=== PATIENT | female | born 1955 | race Caucasian/White ===

== ENCOUNTER 2020-06-22 14:22 | Emergency (ER) | payer BC ==
--- NOTE | 2020-06-22 17:03 | RAD REPORT ---
EXAM DESCRIPTION: RAD - Knee Right 3 View - 06/22/2020 4:13 pm CLINICAL HISTORY: Right knee pain status post injury FINDINGS: No fracture or dislocation is seen. If patient continues have symptoms to suggest an occul t fracture, ligamentous or meniscal injury then MRI would be
--- NOTE | 2020-06-22 17:47 | EDPHYS ---
Physician Documentation [facility] Name: Leslie Mitchell Age: 65 yrs Sex: Female : 1955 Arrival Date: 06/22/2020 Time: 14:27 Bed 20 Private MD: SOFIA Physician Nick Hayes HPI: 06/22 17:35 This 65 yrs old Female presents to ER via Ambulatory with complaints of Knee emily Pain. 17:35 The patient presents with decreased range of motion. The complaints affect the right emily knee. Context: The problem was sustained at home. Onset: The symptoms/episode began/occurred just prior to arrival. Modifying factors: The symptoms are alleviated by elevating leg, remaining still, the symptoms are aggravated by nothing. Associated signs and symptoms: The patient has no apparent associated signs or symptoms. Severity of symptoms: At their worst the symptoms were moderate, in the emergency department the symptoms are unchanged. The patient has not experienced similar symptoms in the past. Historical: - Allergies: 14:36 No Known Allergies; aa5 - Home Meds: 14:36 sertraline 200 mg oral tab 1 tab once daily [Active]; lisinopril 10 mg Oral tab 1 tab aa5 once daily [Active]; atorvastatin 80 mg oral tab 1 tab once daily [Active]; Januvia 100 mg oral tab 1 tab once daily [Active]; metformin 1,000 mg Oral tab 1 tab 2 times per day [Active]; glyburide 5 mg Oral tab 1 tab 2 times per day [Active]; Lasix 20 mg Oral tab 1 tab once daily [Active]; montelukast 10 mg oral tab 1 tab once daily [Active]; pioglitazone 15 mg oral tab 1 tab once daily [Active]; Vitamin C 1,000 mg Oral tab daily [Active]; aspirin 81 mg Oral chew 1 tab once daily [Active]; Centrum Silver oral oral daily [Active]; cranberry oral oral [Active]; - PMHx: 14:36 Hyperlipidemia; Hypertension; Diabetes - NIDDM; Asthma; aa5 - PSHx: 14:36 Hysterectomy; ; arm surgery; aa5 - Immunization history:: Client reports receiving the 2nd dose of the Covid vaccine, Flu vaccine is up to date. - Social history:: Smoking status: Patient/guardian denies using tobacco. - Family history:: not pertinent. ROS: 17:35 Constitutional: Negative for fever, chills, and weight loss, Eyes: Negative for injury, emily pain, redness, and discharge, ENT: Negative for injury, pain, and discharge, Neck: Negative for injury, pain, and swelling, Cardiovascular: Negative for chest pain, palpitations, and edema, Respiratory: Negative for shortness of breath, cough, wheezing, and pleuritic chest pain, Abdomen/GI: Negative for abdominal pain, nausea, vomiting, diarrhea, and constipation, Back: Negative for injury and pain, : Negative for injury, bleeding, discharge, and swelling, Skin: Negative for injury, rash, and discoloration, Neuro: Negative for headache, weakness, numbness, tingling, and seizure, Psych: Negative for depression, anxiety, suicide ideation, homicidal ideation, and hallucinations, Allergy/Immunology: Negative for hives, rash, and allergies, Endocrine: Negative for neck swelling, polydipsia, polyuria, polyphagia, and marked weight changes, Hematologic/Lymphatic: Negative for swollen nodes, abnormal bleeding, and unusual bruising. 17:35 MS/extremity: Positive for injury or acute deformity, decreased range of motion, pain, of the right knee. Exam: 17:35 Constitutional: This is a well developed, well nourished patient who is awake, alert, emily and in no acute distress. Head/Face: Normocephalic, atraumatic. Eyes: Pupils equal round and reactive to light, extra-ocular motions intact. Lids and lashes normal. Conjunctiva and sclera are non-icteric and not injected. Cornea within normal limits. Periorbital areas with no swelling, redness, or edema. ENT: Nares patent. No nasal discharge, no septal abnormalities noted. Tympanic membranes are normal and external auditory canals are clear. Oropharynx with no redness, swelling, or masses, exudates, or evidence of obstruction, uvula midline. Mucous membranes moist. Neck: Trachea midline, no thyromegaly or masses palpated, and no cervical lymphadenopathy. Supple, full range of motion without nuchal rigidity, or vertebral point tenderness. No Meningismus. Chest/axilla: Normal chest wall appearance and motion. Nontender with no deformity. No lesions are appreciated. Cardiovascular: Regular rate and rhythm with a normal S1 and S2. No gallops, murmurs, or rubs. Normal PMI, no JVD. No pulse deficits. Respiratory: Lungs have equal breath sounds bilaterally, clear to auscultation and percussion. No rales, rhonchi or wheezes noted. No increased work of breathing, no retractions or nasal flaring. Abdomen/GI: Soft, non-tender, with normal bowel sounds. No distension or tympany. No guarding or rebound. No evidence of tenderness throughout. Back: No spinal tenderness. No costovertebral tenderness. Full range of motion. Female : Normal external genitalia. Skin: Warm, dry with normal turgor. Normal color with no rashes, no lesions, and no evidence of cellulitis. Neuro: Awake and alert, GCS 15, oriented to person, place, time, and situation. Cranial nerves II-XII grossly intact. Motor strength 5/5 in all extremities. Sensory grossly intact. Cerebellar exam normal. Normal gait. Psych: Awake, alert, with orientation to person, place and time. Behavior, mood, and affect are within normal limits. 17:35 Musculoskeletal/extremity: Extremities: grossly normal except: decreased ROM, pain, ROM: full active range of motion, full passive range of motion, limited active range of motion due to pain, limited passive range of motion due to pain, in the right knee. 17:35 Musculoskeletal/extremity: Circulation is intact in all extremities. Sensation intact. Compartment Syndrome exam of affected extremity: is normal. DVT Exam: no swelling, no appreciated bluish discoloration, no erythema, no increased warmth, pain, tenderness. 17:35 Skin: Exam negative for 17:35 Neuro: Exam negative for Orientation: is normal, appropriate for stated age, no acute changes. Vital Signs: 14:31 BP 125 / 67; Pulse 94; Resp 18; Temp 97.9; Pulse Ox 99% on R/A; Weight 87.09 kg (R); aa5 Height 5 ft. 3 in. (160.02 cm) (R); Pain 7/10; 14:31 Body Mass Index 34.01 (87.09 kg, 160.02 cm) aa5 MDM: 16:24 Patient medically screened. emily 17:49 Differential diagnosis: dislocation, closed fracture, contusion, abrasion, tendonitis. emily Data reviewed: vital signs, nurses notes, radiologic studies, plain films. Data interpreted: hydraulic technician: not applicable for this patient encounter. rate is 94 beats/min, rhythm is regular, Pulse oximetry: on room air is 99 %. Test interpretation: by ED physician or midlevel provider: plain radiologic studies. Counseling: I had a detailed discussion with the patient and/or guardian regarding: the historical points, exam findings, and any diagnostic results supporting the discharge/admit diagnosis, lab results, radiology results, the need for outpatient follow up, for definitive care, a orthopedic surgeon. 06/22 14:41 Order name: Knee Right 3 View XRAY aa5 06/22 14:46 Order name: Ice pack; Complete Time: 17:08 [facility] 06/22 17:33 Order name: Knee Immobilizer; Complete Time: 18:06 emily 06/22 17:33 Order name: Crutch Training; Complete Time: 18:06 [facility] Administered Medications: 18:00 Drug: Motrin (ibuprofen) 600 mg Route: PO; zb 18:06 Follow up: Response: Medication administered at discharge. zb Disposition: 06/22/20 17:46 Discharged to Home. Impression: Pain in right knee, Other internal derangements of knee - further evaluation needed, Essential (primary) hypertension, Type 2 diabetes mellitus. - Condition is Stable. - Discharge Instructions: Joint Pain, Hypertension, Knee Pain, Cryotherapy, [id number], Hypertension, Mklc-[id number], Cryotherapy, Knee Pain, [id number]. - Prescriptions for Tylenol- Codeine #3 300-30 mg Oral Tablet - take 2 tablets by ORAL route every 4-6 hours As needed; 26 tablet. Motrin IB 200 mg Oral Tablet - take 2 tablet by ORAL route every 6 hours As needed as needed with food; 30 tablet. - Medication Reconciliation Form, Thank You Letter, Antibiotic Education, Prescription Opioid Use form. - Follow up: Private Physician; When: 2 - 3 days; Reason: Recheck today's complaints, Continuance of care, Re-evaluation by your physician. Follow up: Inderjit Peck MD; When: 2 - 3 days; Reason: Recheck today's complaints, Re-evaluation by your physician. - Problem is new. - Symptoms have improved. Signatures: Dispatcher [employer] EDMS Nick Hayes MD MD cha Calderon, Audri, RN RN aa5 Brown, Madeline, RN RN zb Corrections: (The following items were deleted from the chart) 17:46 17:46 06/22/2020 17:46 Discharged to Home. Impression: Pain in right knee; Other emily internal derangements of knee - further evaluation needed. Condition is Stable. Forms are Medication Reconciliation Form, Thank You Letter, Antibiotic Education, Prescription Opioid Use. Follow up: Private Physician; When: 2 - 3 days; Reason: Recheck today's complaints, Continuance of care, Re-evaluation by your physician. Follow up: Inderjit Peck; When: 2 - 3 days; Reason: Recheck today's complaints, Re-evaluation by your physician. Problem is new. Symptoms have improved. emily 18:26 17:46 06/22/2020 17:46 Discharged to Home. Impression: Pain in right knee; Other zb internal derangements of knee - further evaluation needed; Essential (primary) hypertension; Type 2 diabetes mellitus. Condition is Stable. Forms are Medication Reconciliation Form, Thank You Letter, Antibiotic Education, Prescription Opioid Use. Follow up: Private Physician; When: 2 - 3 days; Reason: Recheck today's complaints, Continuance of care, Re-evaluation by your physician. Follow up: Inderjit Peck; When: 2 - 3 days; Reason: Recheck today's complaints, Re-evaluation by your physician. Problem is new. Symptoms have improved. emily
--- NOTE | 2020-06-22 17:47 | ER ---
Nurse's Notes [facility] Name: Leslie Mitchell Age: 65 yrs Sex: Female : 1955 Arrival Date: 06/22/2020 Time: 14:27 Bed 20 Private MD: Diagnosis: Pain in right knee;Other internal derangements of knee-further evaluation needed;Essential (primary) hypertension;Type 2 diabetes mellitus Presentation: 06/22 14:31 Chief complaint: Patient states: "Earlier I was stepping into my daughters house and I aa5 stepped wrong on my knee and I felt something pop. I've been having problems with this knee for months and I just hadn't gotten it checked out yet" Patient reports pain to right knee. Coronavirus screen: Client denies travel out of the [place] in the last 14 days. At this time, the client does not indicate any symptoms associated with coronavirus-19. Ebola Screen: Patient denies travel to an Ebola-affected area in the 21 days before illness onset. Initial Sepsis Screen: Does the patient meet any 2 criteria? No. Patient's initial sepsis screen is negative. Does the patient have a suspected source of infection? No. Patient's initial sepsis screen is negative. Risk Assessment: Do you want to hurt yourself or someone else? Patient reports no desire to harm self or others. Onset of symptoms was 2020. 14:31 Method Of Arrival: Ambulatory aa5 14:31 Acuity: CINDY 4 aa5 Triage Assessment: 14:36 General: Appears in no apparent distress. uncomfortable, Behavior is calm, cooperative, aa5 appropriate for age. Pain: Complains of pain in right knee Pain currently is 6 out of 10 on a pain scale. Neuro: Level of Consciousness is awake, alert, obeys commands. Cardiovascular: Patient's skin is warm and dry. Respiratory: Airway is patent Respiratory effort is even, unlabored, Respiratory pattern is regular, symmetrical. Historical: - Allergies: 14:36 No Known Allergies; aa5 - Home Meds: 14:36 sertraline 200 mg oral tab 1 tab once daily [Active]; lisinopril 10 mg Oral tab 1 tab aa5 once daily [Active]; atorvastatin 80 mg oral tab 1 tab once daily [Active]; Januvia 100 mg oral tab 1 tab once daily [Active]; metformin 1,000 mg Oral tab 1 tab 2 times per day [Active]; glyburide 5 mg Oral tab 1 tab 2 times per day [Active]; Lasix 20 mg Oral tab 1 tab once daily [Active]; montelukast 10 mg oral tab 1 tab once daily [Active]; pioglitazone 15 mg oral tab 1 tab once daily [Active]; Vitamin C 1,000 mg Oral tab daily [Active]; aspirin 81 mg Oral chew 1 tab once daily [Active]; Centrum Silver oral oral daily [Active]; cranberry oral oral [Active]; - PMHx: 14:36 Hyperlipidemia; Hypertension; Diabetes - NIDDM; Asthma; aa5 - PSHx: 14:36 Hysterectomy; ; arm surgery; aa5 - Immunization history:: Client reports receiving the 2nd dose of the Covid vaccine, Flu vaccine is up to date. - Social history:: Smoking status: Patient/guardian denies using tobacco. - Family history:: not pertinent. Screenin:00 Abuse screen: Denies threats or abuse. Denies injuries from another. Nutritional zb screening: No deficits noted. Tuberculosis screening: No symptoms or risk factors identified. Fall Risk None identified. Assessment: 18:00 General: Appears in no apparent distress. Pain: Complains of pain in right knee Pain zb does not radiate. Pain currently is 5 out of 10 on a pain scale. Neuro: No deficits noted. Cardiovascular: No deficits noted. Respiratory: No deficits noted. GI: No deficits noted. : No deficits noted. Derm: Skin is intact, is healthy with good turgor, Skin is dry, Skin is normal. Musculoskeletal: Circulation, motion, and sensation intact. Range of motion: limited in right knee. Musculoskeletal: Swelling present in right knee. Vital Signs: 14:31 BP 125 / 67; Pulse 94; Resp 18; Temp 97.9; Pulse Ox 99% on R/A; Weight 87.09 kg (R); aa5 Height 5 ft. 3 in. (160.02 cm) (R); Pain 7/10; 14:31 Body Mass Index 34.01 (87.09 kg, 160.02 cm) aa5 ED Course: 14:27 Patient arrived in ED. am2 14:33 Nick Hayes MD is Attending Physician. [facility] 14:33 Triage completed. aa5 14:36 Arm band placed on Patient placed in waiting room, Patient notified of wait time. aa5 16:12 Knee Right 3 View XRAY In Process Unspecified. EDMS 17:40 Madeline Angel, RN is Primary Nurse. zb 17:45 Inderjit Peck MD is Referral Physician. [facility] 18:00 Patient has correct armband on for positive identification. Bed in low position. Call zb light in reach. Side rails up X 1. Pulse ox on. NIBP on. Door closed. Noise minimized. 18:00 No provider procedures requiring assistance completed. Patient did not have IV access zb during this emergency room visit. Administered Medications: 18:00 Drug: Motrin (ibuprofen) 600 mg Route: PO; zb 18:06 Follow up: Response: Medication administered at discharge. zb Outcome: 17:46 Discharge ordered by . [facility] 18:00 Discharged to home ambulatory. zb 18:00 Condition: stable 18:00 Discharge instructions given to patient, Instructed on discharge instructions, follow up and referral plans. medication usage, Demonstrated understanding of instructions, follow-up care, medications, Prescriptions given X 2. 18:26 Patient left the ED. zb Signatures: Dispatcher [employer] EDMS Nick Hayes MD MD cha Calderon, Audri, RN RN Nicki Rojas am Madeline Angel, RN RN zb
[2020-06-22] MEDS ORDERED: IBUPROFEN 200 MG TAB PO ONE (18:03)
[2020-06-22] MEDS ORDERED: IBUPROFEN 400 MG TAB ONE (18:03)
[2020-06-22 18:32] VITALS: BP 125/67; TEMP 97.9; O2SAT 99
== END 2020-06-22 18:26 | disposition home or self-care (01) ==
LOC: ER 14:22
DX: M23.8X1 Other internal derangements of right knee (principal); I10 Essential (primary) hypertension; E11.9 Type 2 diabetes mellitus without complications; E78.5 Hyperlipidemia, unspecified; J45.909 Unspecified asthma, uncomplicated; Z79.82 Long term (current) use of aspirin
CPT/HCPCS: 99284

== ENCOUNTER 2024-09-27 16:54 | Observation (INO) | payer OTHER, MEDICARE ==
[2024-09-27] MEDS ORDERED: FAMOTIDINE 20 MG/2 ML VIAL IV ONE (17:31)
[2024-09-27] MEDS ORDERED: NA CHLORIDE 0.9% 1,000 ML ONE ×2 (17:31→19:49)
[2024-09-27] MEDS ORDERED: FOLIC ACID 5 MG/ML VIAL ONE ×2 (17:31→19:49)
--- NOTE | 2024-09-27 17:34 | RAD REPORT ---
EXAM: CT Ct Stroke Brain Wo Cont HISTORY: STROKE ALERT COMPARISON: None TECHNIQUE: Multiple contiguous axial images were obtained for a CT of the brain without contrast. Sag ittal and coronal reformats were performed. One or more of the following dose reduction techniques were used: Automated exposure control, adjus tment of the mA and kV according to patient size, and iterative reconstruction. Unless otherwise specified, incidental findings do not require dedicated imaging follow-up. FINDINGS: No evidence of hydrocephalus, intracranial hemorrhage, or extra-axial fluid collection. Mild brain atrophy with mild periventricular and deep white matter chronic microvascular ischemic ch anges present. The calvarium is intact. The visualized paranasal sinuses and mastoid air cells are essentially clear . IMPRESSION: No evidence of acute intracranial abnormality. THIS REPORT CONTAINS FINDINGS THAT MAY BE CRITICAL TO PATIENT CARE. The findings were verbally commun icated via telephone to Cindi Quiñones NP on 09/27/2024 5:30 PM.
[2024-09-27] MEDS ORDERED: TENECTEPLASE 50 MG/10 ML VIAL IV ONE (17:36)
[2024-09-27 17:39] LABS: Absolute Lymphocytes (CBC) 1.8 K/uL (0.7-4.9); Hematocrit 44.9 % (36.0-45.0); Hemoglobin 15.2 g/dL (12.0-15.0); MCH 31.5 pg (27.0-35.0); MCHC 33.8 g/dL (32.0-36.0); MCV 93.0 fL (80-100); MPV 7.3 fL (7.6-11.3); Nucleated RBC Absolute Count 0.0 (0-0); Nucleated Red Blood Cells % 0.0 % (0-0); RBC Red Blood Cell Count 4.82 M/uL (3.86-4.86); White Blood Count 7.80 thou/uL (4.3-10.9)
[2024-09-27 17:46] LABS: PT Prothrombin Time 11.9 SECONDS (10-13.0); Protime INR 1.05
--- NOTE | 2024-09-27 17:58 | ER ---
Nurse's Notes [facility] Name: Leslie Mitchell Age: 69 yrs Sex: Female : 1955 Arrival Date: 09/27/2024 Time: 16:54 Bed IW10 Private MD: Diagnosis: Aphasia-RESOLVED;Transient cerebral ischemic attack, unspecified-RESOLVED Presentation: 09/27 17:00 Chief complaint: Patient's son or daughter states: SLOW TO RESPOND ONSET TODAYAT 1630. cm10 PT STATES THAT SHE IS HAVING DIFFICULTY TRYING TO EXPLAIN THINGS. 17:00 Method Of Arrival: Ambulatory cm10 17:00 Coronavirus screen: Client denies travel out of the [place] in the last 14 days. Ebola cm10 Screen: Patient denies travel to an Ebola-affected area in the 21 days before illness onset. An acute neurological deficit is present. The charge nurse has been notified. The patient has been moved to a treatment area. Pre-hospital glucose is not applicable to this patient. Risk Assessment: Do you want to hurt yourself or someone else? Patient reports no desire to harm self or others. Onset of symptoms was September 27, 2024 at 16:30. 17:00 Acuity: CINDY 2 cm10 Triage Assessment: 17:17 The onset of the patients symptoms was September 27, 2024 at 16:30. General: Appears in no cm10 apparent distress. comfortable, Behavior is calm, cooperative. 17:18 Neuro: No deficits noted. Level of Consciousness is awake, alert, obeys commands, cm10 Oriented to person, place, time, situation, Appropriate for age. Respiratory: No deficits noted. Airway is patent Respiratory effort is even, unlabored, Respiratory pattern is regular, symmetrical. Stroke Activation: Symptom onset < 3 hours Physician: ED Attending; Name: GUY; Notified At: ; Arrived At: Physician: Mid-Level Provider; Name: ; Notified At: ; Arrived At: Physician: [not used]; Name: ; Notified At: ; Arrived At: Physician: [not used]; Name: ; Notified At: ; Arrived At: Physician: [not used]; Name: ; Notified At: ; Arrived At: Historical: - Allergies: 17:17 No Known Allergies; cm10 - PMHx: 17:17 Asthma; Diabetes - NIDDM; Hyperlipidemia; Hypertension; COLON CANCER; cm10 - PSHx: 17:17 section; hysterectomy; Wrist - Right; cm10 - Immunization history:: Adult Immunizations up to date. - Infectious Disease History:: Denies. - Social history:: Smoking status: Patient denies any tobacco usage or history of. - Family history:: not pertinent. Screenin:38 [facility] ED Fall Risk Assessment (Adult) History of falling in the last 3 months, db including since admission No falls in past 3 months (0 pts) Confusion or Disorientation No (0 pts) Intoxicated or Sedated No (0 pts) Impaired Gait No (0 pts) Mobility Assist Device Used No (0 pt) Altered Elimination No (0 pt) Score/Fall Risk Level 0 - 2 = Low Risk Oriented to surroundings, Maintained a safe environment. Abuse screen: Denies threats or abuse. Denies injuries from another. Nutritional screening: No deficits noted. Tuberculosis screening: No symptoms or risk factors identified. Assessment: 17:03 General: CODE STROKE CALLED AT THIS TIME.. cm10 17:09 Reassessment: Patient appears in no apparent distress at this time. Patient and/or db family updated on plan of care and expected duration. Pain level reassessed. Patient is alert, oriented x 3, equal unlabored respirations, skin warm/dry/pink. General: Appears in no apparent distress. comfortable, Behavior is calm, cooperative. 17:10 Reassessment: SYMPTOMS STARTED AT 1630. db 17:15 VAN Scoring: Arm Drift: Patients demonstrates NO arm weakness. Patient is VAN Negative. db Visual Disturbance: No visual disturbance noted. Aphasia: No aphasia noted. Neglect: No neglect noted. 17:35 [place] Swallow Protocol Exclusion Criteria: Exclusion Criteria Result: Proceed Brief db Cognitive Screen What is your name? Normal, Where are you right now? Normal, What year is it? Normal. Oral Mechanism Examination Facial Symmetry: Normal, Motion: Normal, Lip Closure: Normal, Oral Mechanism Result: Normal. 3 oz Water Swallow Challenge: Pt able to drink all water without stopping, coughing, choking or throat clearing: Yes Result: PASS Notified: Nick Hayes MD. TNKase (Tenecteplase) Screening: Indications: Contraindications: Other: PHYSICIAN DISCHRETION. Pain: Denies pain. Neuro: Level of Consciousness is awake, alert, obeys commands, Oriented to person, place, time, situation. 20:20 General: Appears in no apparent distress. comfortable, Behavior is calm, cooperative. al5 Pain: Denies pain. Neuro: Level of Consciousness is awake, alert, obeys commands, Oriented to person, place, time, situation, Logging Supervisor are equal bilaterally Moves all extremities. Full function Gait is steady, Speech is normal, Facial symmetry appears normal, Pupils are PERRLA. Cardiovascular: Capillary refill < 3 seconds Patient's skin is warm and dry. Respiratory: Airway is patent Respiratory effort is even, unlabored, Respiratory pattern is regular, symmetrical. GI: No signs and/or symptoms were reported involving the gastrointestinal system. : No signs and/or symptoms were reported regarding the genitourinary system. EENT: No signs and/or symptoms were reported regarding the EENT system. Derm: Skin is intact, is healthy with good turgor, Skin is pink, warm \T\ dry. normal. Musculoskeletal: Circulation, motion, and sensation intact. Range of motion: intact in all extremities. Vital Signs: 17:37 BP 145 / 64; Pulse 95; Resp 18; Pulse Ox 98% on R/A; Weight 82.7 kg (M); Height 5 ft. 2 cm10 in. ; Pain 0/10; 18:03 BP 125 / 67; Pulse 88; Resp 19; Pulse Ox 100% ; db 18:30 BP 126 / 62; Pulse 88; Resp 14; Temp 98; Pulse Ox 99% ; db 19:00 BP 134 / 65; Pulse 87; Resp 15; Pulse Ox 99% on R/A; al5 19:30 BP 113 / 58; Pulse 91; Resp 19; Pulse Ox 97% on R/A; al5 20:30 BP 124 / 65; Pulse 88; Resp 17; Pulse Ox 98% on R/A; al5 17:37 Body Mass Index 33.35 (82.70 kg, 157.48 cm) cm10 17:37 Pain Scale: Adult cm10 NIH Stroke Scale Scores: 17:03 NIHSS Score: 1 cm10 17:38 NIHSS Score: 0 cm10 ED Course: 16:56 Patient arrived in ED. mr 16:59 Arm band placed on Patient placed in an exam room, on a stretcher. ll1 17:03 Nick Hayes MD is Attending Physician. emily 17:[address] via stretcher. db 17:07 Zita Flores, RN is Primary Nurse. db 17:17 Triage completed. cm10 17:25 Initial lab(s) drawn, by me, sent to lab. Inserted saline lock: 22 gauge in left cm10 antecubital area, using aseptic technique. Blood collected. Flushed with 10 mL NS. Missed attempt(s): 20 gauge in right antecubital area. Bleeding controlled, band aid applied, catheter tip intact. 17:27 CT Stroke Brain w/o Contrast In Process Unspecified. EDMS 17:32 CT Head Angio In Process Unspecified. EDMS 17:32 CT Neck Angio In Process Unspecified. EDMS 17:56 Larry Alvarez MD is Hospitalizing Provider. [facility] 18:02 XRAY Chest (1 view) In Process Unspecified. EDMS 18:15 Urine collected:. db 18:43 Patient has correct armband on for positive identification. Placed in gown. Bed in low db position. Call light in reach. Side rails up X 1. Client placed on continuous cardiac and pulse oximetry monitoring. NIBP monitoring applied. surveillance system monitor on. Pulse ox on. NIBP on. Warm blanket given. Pillow given. 19:08 Provided Education on: ADMISSION. db 19:08 No provider procedures requiring assistance completed. Patient admitted, IV remains in db place. 20:27 Nicki Rowe, RN is Primary Nurse. al5 Administered Medications: 17:30 Drug: NS 0.9% IV 1000 ml IV at 1000 ml once; to be given as a bolus over 60 minutes db Route: IV; Rate: 1000 ml; Site: left antecubital; 19:09 Follow up: Response: No adverse reaction; IV Status: Completed infusion; IV Intake: db 1000ml 17:30 Drug: foLIC Acid IVPB 1 mg IVPB once Route: IVPB; Site: left antecubital; db 19:10 Follow up: Response: No adverse reaction; IV Status: Completed infusion db 17:30 Drug: Famotidine IVP 20 mg IVP once; dilute with 10 mL 0.9% NaCl; give over 2 minutes db Route: IVP; Site: left antecubital; 20:37 Follow up: Response: No adverse reaction al5 17:55 Drug: Aspirin PO Chewable Tablet 243 mg PO once Route: PO; db 19:09 Follow up: Response: No adverse reaction db 17:55 Drug: Clopidogrel PO 75 mg PO once Route: PO; db 19:09 Follow up: Response: No adverse reaction db 17:55 Drug: Atorvastatin PO 20 mg PO once Route: PO; db 19:09 Follow up: Response: No adverse reaction db 20:36 Drug: Lovenox Sub-Q 40 mg Sub-Q once Route: Sub-Q; Site: right lower abdomen; al5 20:37 Follow up: Response: No adverse reaction al5 20:37 Drug: Banana Bag - (Multivitamin IV 1 amp, NS 0.9% IV 1000 ml, Thiamine IV 100 mg, al5 foLIC Acid IVPB 1 mg) IV at 125 ml/hr once Route: IV; Rate: 125 ml/hr; Site: left antecubital; 20:37 Follow up: Response: No adverse reaction; IV Status: Infusion continued upon admission al5 Medication: 19:08 VIS not applicable for this client. db Point of Care Testing: Blood Glucose: 17:07 Blood Glucose: 108 mg/dL; db Ranges: Intake: 19:09 IV: 1000ml; Total: 1000ml. db Outcome: 17:57 Decision to Hospitalize by Provider. emily 20:37 Admitted to Med/surg accompanied by tech, family with patient, via wheelchair, room al5 222, with chart, 20:37 Condition: stable 20:37 Instructed on the need for admit, 20:53 Patient left the ED. al5 NIH Stroke Scale - NIH Stroke Score Date: 09/27/2024 Time: 17:03 Total Score = 1 10. Dysarthria (speech clarity - read or repeat words) - 0(Normal) 11. Extinction and Inattention (visual/tactile/auditory/spatial/personal) - 0(No abnormality) 1a. Level of Consciousness (LOC) - 0(Alert) 1b. Level of Consciousness (LOC) (Month \T\ Age) - 0(Both) 1c. LOC Commands (Open \T\ Closes Eyes/Parish Worker) - 0(Both) 2. Best Gaze (Lateral Gaze Paresis) - 0(Normal) 3. Visual Field Loss - 0(No visual loss) 4. Facial Palsy - 0(Normal) 5a. Left Arm: Motor (10-second hold) - 0(No drift) 5b. Right Arm: Motor (10-second hold) - 0(No drift) 6a. Left Leg: Motor (5-second hold - always test supine) - 0(No drift) 6b. Right Leg: Motor (5-second hold - always test supine) - 0(No drift) 7. Limb Ataxia (finger/nose \T\ heel/puckett - test with eyes open) - 0(Absent) 8. Sensory Loss (pinprick arms/legs/face) - 0(Normal) 9. Best Language: Aphasia (description/naming/reading) - 1(Mild to moderate aphasia) Initials: cm10 NIH Stroke Scale - NIH Stroke Score Date: 09/27/2024 Time: 17:38 Total Score = 0 10. Dysarthria (speech clarity - read or repeat words) - 0(Normal) 11. Extinction and Inattention (visual/tactile/auditory/spatial/personal) - 0(No abnormality) 1a. Level of Consciousness (LOC) - 0(Alert) 1b. Level of Consciousness (LOC) (Month \T\ Age) - 0(Both) 1c. LOC Commands (Open \T\ Closes Eyes/Parish Worker) - 0(Both) 2. Best Gaze (Lateral Gaze Paresis) - 0(Normal) 3. Visual Field Loss - 0(No visual loss) 4. Facial Palsy - 0(Normal) 5a. Left Arm: Motor (10-second hold) - 0(No drift) 5b. Right Arm: Motor (10-second hold) - 0(No drift) 6a. Left Leg: Motor (5-second hold - always test supine) - 0(No drift) 6b. Right Leg: Motor (5-second hold - always test supine) - 0(No drift) 7. Limb Ataxia (finger/nose \T\ heel/puckett - test with eyes open) - 0(Absent) 8. Sensory Loss (pinprick arms/legs/face) - 0(Normal) 9. Best Language: Aphasia (description/naming/reading) - 0(No aphasia) Initials: cm10 Signatures: Dispatcher [employer] Nick Spear MD MD cha Rivera, Jalyn, Reg Reg mr Tristian Cooper, RN RN ll1 Zita Flores, RN RN db Alanna Gomez RN RN cm10 Nicki Rowe RN RN al5 Corrections: (The following items were deleted from the chart) 18:45 18:30 BP 126 / 62; Pulse 8bpm; Resp 14bpm; Pulse Ox 99%; Temp 98F; db db :53 19:08 Admitted to Med/surg db al5 19:08 Condition: stable db al5 53 19:08 Instructed on the need for admit, db al5
--- NOTE | 2024-09-27 17:58 | EDPHYS ---
Physician Documentation [facility] Name: Leslie Mitchell Age: 69 yrs Sex: Female : 1955 Arrival Date: 09/27/2024 Time: 16:54 Bed IW10 Private MD: ED Physician Nick Hayes HPI: 09/27 17:47 This 69 yrs old Female presents to ER via Ambulatory with complaints of S/S emily of Possible Stroke. 17:47 The patient's problem is reported as dysphasia, slurred speech, slow speech. Onset: The emily symptoms/episode began/occurred at 16:30. Duration: This was a single incident. Context: the episode(s) was witnessed, by family, daughter. The symptoms are alleviated by nothing. The symptoms are aggravated by nothing. Associated signs and symptoms: The patient has no apparent associated signs or symptoms. Severity of symptoms: At their worst the symptoms were moderate in the emergency department the symptoms have improved markedly. Patient's baseline: Neuro: alert and fully oriented. Historical: - Allergies: 17:17 No Known Allergies; cm10 - PMHx: 17:17 Asthma; Diabetes - NIDDM; Hyperlipidemia; Hypertension; COLON CANCER; cm10 - PSHx: 17:17 section; hysterectomy; Wrist - Right; cm10 - Immunization history:: Adult Immunizations up to date. - Infectious Disease History:: Denies. - Social history:: Smoking status: Patient denies any tobacco usage or history of. - Family history:: not pertinent. ROS: 17:47 Constitutional: Negative for fever, chills, and weight loss, Eyes: Negative for injury, emily pain, redness, and discharge, ENT: Negative for injury, pain, and discharge, Neck: Negative for injury, pain, and swelling, Cardiovascular: Negative for chest pain, palpitations, and edema, Respiratory: Negative for shortness of breath, cough, wheezing, and pleuritic chest pain, Abdomen/GI: Negative for abdominal pain, nausea, vomiting, diarrhea, and constipation, Back: Negative for injury and pain, : Negative for injury, bleeding, discharge, and swelling, MS/Extremity: Negative for injury and deformity, Skin: Negative for injury, rash, and discoloration, Psych: Negative for depression, anxiety, suicide ideation, homicidal ideation, and hallucinations, Allergy/Immunology: Negative for hives, rash, and allergies, Endocrine: Negative for neck swelling, polydipsia, polyuria, polyphagia, and marked weight changes, Hematologic/Lymphatic: Negative for swollen nodes, abnormal bleeding, and unusual bruising, 17:47 Neuro: Positive for speech changes, Exam: 17:47 Radiologist reports: NEG emily 17:47 Constitutional: This is a well developed, well nourished patient who is awake, alert, and in no acute distress. Head/Face: Normocephalic, atraumatic. Eyes: Pupils equal round and reactive to light, extra-ocular motions intact. Lids and lashes normal. Conjunctiva and sclera are non-icteric and not injected. Cornea within normal limits. Periorbital areas with no swelling, redness, or edema. ENT: Nares patent. No nasal discharge, no septal abnormalities noted. Tympanic membranes are normal and external auditory canals are clear. Oropharynx with no redness, swelling, or masses, exudates, or evidence of obstruction, uvula midline. Mucous membranes moist. Neck: Trachea midline, no thyromegaly or masses palpated, and no cervical lymphadenopathy. Supple, full range of motion without nuchal rigidity, or vertebral point tenderness. No Meningismus. Chest/axilla: Normal chest wall appearance and motion. Nontender with no deformity. No lesions are appreciated. Cardiovascular: Regular rate and rhythm with a normal S1 and S2. No gallops, murmurs, or rubs. Normal PMI, no JVD. No pulse deficits. Respiratory: Lungs have equal breath sounds bilaterally, clear to auscultation and percussion. No rales, rhonchi or wheezes noted. No increased work of breathing, no retractions or nasal flaring. Abdomen/GI: Soft, non-tender, with normal bowel sounds. No distension or tympany. No guarding or rebound. No evidence of tenderness throughout. Back: No spinal tenderness. No costovertebral tenderness. Full range of motion. Skin: Warm, dry with normal turgor. Normal color with no rashes, no lesions, and no evidence of cellulitis. MS/ Extremity: Pulses equal, no cyanosis. Neurovascular intact. Full, normal range of motion., bilateral aka Neuro: Awake and alert, GCS 15, oriented to person, place, time, and situation. Cranial nerves II-XII grossly intact. Motor strength 5/5 in all extremities. Sensory grossly intact. Cerebellar exam normal. Normal gait. Psych: Awake, alert, with orientation to person, place and time. Behavior, mood, and affect are within normal limits. 17:47 ECG was reviewed by the Attending Physician. Vital Signs: 17:37 BP 145 / 64; Pulse 95; Resp 18; Pulse Ox 98% on R/A; Weight 82.7 kg (M); Height 5 ft. 2 cm10 in. ; Pain 0/10; 18:03 BP 125 / 67; Pulse 88; Resp 19; Pulse Ox 100% ; db 18:30 BP 126 / 62; Pulse 88; Resp 14; Temp 98; Pulse Ox 99% ; db 19:00 BP 134 / 65; Pulse 87; Resp 15; Pulse Ox 99% on R/A; al5 19:30 BP 113 / 58; Pulse 91; Resp 19; Pulse Ox 97% on R/A; al5 20:30 BP 124 / 65; Pulse 88; Resp 17; Pulse Ox 98% on R/A; al5 17:37 Body Mass Index 33.35 (82.70 kg, 157.48 cm) cm10 17:37 Pain Scale: Adult cm10 NIH Stroke Scale Scores: 17:03 NIHSS Score: 1 cm10 17:38 NIHSS Score: 0 cm10 MDM: 17:03 Medical Screening Exam initiated emily 17:31 Discussion of test interpretation with radiology: I had a discussion with radiology kb regarding a test interpretation. Ct head negative for acute findings. 17:53 TNKase (Tenecteplase) Screening: Indications: Definite evidence of stroke, ischemic, emily embolic, or hypertensive: No. Treatment will start within 4.5 hours onset of symptoms: Yes. No evidence of intracranial hemorrhage or CT of head and no evidence of peripheral hemorrhage or recent CVA: Yes. Consent for thrombolytic therapy: No. Contraindications: Other: AT BASELINE. Data reviewed: vital signs, nurses notes, lab test result(s), EKG, radiologic studies, CT scan, MRI. Consideration of Admission/Observation Escalation of care including admission/observation considered. I considered the following discharge prescriptions or medication management in the emergency department Medications were administered in the Emergency Department. See MAR. Independent interpretation of the following test(s) in the Emergency Department EKG: See my EKG interpretation above MRI: My interpretation is MRI PENDING. Test considered but Not performed: Ultrasound NO CAROTID USG. Historians other than the Patient: Family Member: AND DAUGHTER. Care significantly affected by the following chronic conditions: Diabetes, Hypertension, Obesity, Cancer, HYPERLIPID. 09/27 17:04 Order name: Basic Metabolic Panel; Complete Time: 18:09 [facility] 09/27 17:04 Order name: CBC with Diff; Complete Time: 18:09 [facility] 09/27 17:04 Order name: LFT's; Complete Time: 18:09 [facility] 09/27 17:04 Order name: Magnesium; Complete Time: 18:09 [facility] 09/27 17:04 Order name: NT PRO-BNP; Complete Time: 18:09 [facility] 09/27 17:04 Order name: PT-INR; Complete Time: 18:09 [facility] 09/27 17:04 Order name: Troponin HS; Complete Time: 18:09 [facility] 09/27 17:04 Order name: UA Rfx Waqar Cult if indicated; Complete Time: 18:59 [facility] 09/27 17:04 Order name: Lipase; Complete Time: 18:09 [facility] 09/27 17:04 Order name: Lipid Profile; Complete Time: 18:09 [facility] 09/27 17:19 Order name: Glucose, Ancillary Testing; Complete Time: 18:09 [facility] 09/27 18:04 Order name: DD; Complete Time: 18:41 bd 09/27 18:17 Order name: CREATININE WHOLE BLOOD; Complete Time: 18:41 [facility] 09/27 17:04 Order name: XRAY Chest (1 view); Complete Time: 19:22 [facility] 09/27 17:04 Order name: CT Head Angio; Complete Time: 18:41 [facility] 09/27 17:04 Order name: CT Neck Angio; Complete Time: 18:41 [facility] 09/27 17:13 Order name: CT Stroke Brain w/o Contrast; Complete Time: 18:09 cm10 09/27 17:04 Order name: EKG; Complete Time: 17:05 [facility] 09/27 18:05 Order name: CONS Physician Consult [facility] 09/27 17:04 Order name: Cardiac monitoring; Complete Time: 17:57 [facility] 09/27 17:04 Order name: EKG - Nurse/Tech; Complete Time: 17:57 [facility] 09/27 17:04 Order name: IV Saline Lock; Complete Time: 17:25 [facility] 09/27 17:04 Order name: Labs collected and sent; Complete Time: 17: [facility] 09/27 17:04 Order name: O2 Per Protocol; Complete Time: : [facility] 09/27 17:04 Order name: O2 Sat Monitoring; Complete Time: 17:39 [facility] EC:47 Rate is 87 beats/min. Rhythm is regular. QRS Phelps is Normal. VT interval is normal. QRS emily interval is normal. QT interval is normal. No Q waves. T waves are Normal. No ST changes noted. Clinical impression: Normal ECG and No evidence of ischemia. Interpreted by me. Reviewed by me. Administered Medications: 17:30 Drug: NS 0.9% IV 1000 ml IV at 1000 ml once; to be given as a bolus over 60 minutes db Route: IV; Rate: 1000 ml; Site: left antecubital; 19:09 Follow up: Response: No adverse reaction; IV Status: Completed infusion; IV Intake: db 1000ml 17:30 Drug: foLIC Acid IVPB 1 mg IVPB once Route: IVPB; Site: left antecubital; db 19:10 Follow up: Response: No adverse reaction; IV Status: Completed infusion db 17:30 Drug: Famotidine IVP 20 mg IVP once; dilute with 10 mL 0.9% NaCl; give over 2 minutes db Route: IVP; Site: left antecubital; 20:37 Follow up: Response: No adverse reaction al5 17:55 Drug: Aspirin PO Chewable Tablet 243 mg PO once Route: PO; db 19:09 Follow up: Response: No adverse reaction db 17:55 Drug: Clopidogrel PO 75 mg PO once Route: PO; db 19:09 Follow up: Response: No adverse reaction db 17:55 Drug: Atorvastatin PO 20 mg PO once Route: PO; db 19:09 Follow up: Response: No adverse reaction db 20:36 Drug: Lovenox Sub-Q 40 mg Sub-Q once Route: Sub-Q; Site: right lower abdomen; al5 20:37 Follow up: Response: No adverse reaction al5 20:37 Drug: Banana Bag - (Multivitamin IV 1 amp, NS 0.9% IV 1000 ml, Thiamine IV 100 mg, al5 foLIC Acid IVPB 1 mg) IV at 125 ml/hr once Route: IV; Rate: 125 ml/hr; Site: left antecubital; 20:37 Follow up: Response: No adverse reaction; IV Status: Infusion continued upon admission al5 Point of Care Testing: Blood Glucose: 17:07 Blood Glucose: 108 mg/dL; db Ranges: Critical Glucose Levels:Adult <50 mg/dl or >400 mg/dl <40 mg/dl or >180 mg/dl Disposition: 09/28 13:48 Co-signature as Attending Physician, Nick Hayes MD I agree with the assessment and emily plan of care. Disposition Summary: 09/27/24 17:57 Hospitalization Ordered Notes: Hospitalization Status: Inpatient Admission emily Provider: Larry Alvarez cha Location: Telemetry/MedSurg (Inpatient) emily Condition: Fair emily Problem: new emily Symptoms: have improved emily Bed/Room Type: Standard emily Room Assignment: 222(09/27/24 18:16) bd Diagnosis - Aphasia - RESOLVED emily - Transient cerebral ischemic attack, unspecified - RESOLVED emily Forms: - Medication Reconciliation Form emily - SBAR form emily - Leadership Thank You Letter emily Critical care time excluding procedures: 09/27 17:53 Critical care time: Bedside Care: 25 minutes, Consultation: 15 minutes, Family emily Intervention: 10 minutes. Total time: 50 minutes NIH Stroke Scale - NIH Stroke Score Date: 09/27/2024 Time: 17:03 Total Score = 1 10. Dysarthria (speech clarity - read or repeat words) - 0(Normal) 11. Extinction and Inattention (visual/tactile/auditory/spatial/personal) - 0(No abnormality) 1a. Level of Consciousness (LOC) - 0(Alert) 1b. Level of Consciousness (LOC) (Month \T\ Age) - 0(Both) 1c. LOC Commands (Open \T\ Closes Eyes/Solid State Tester) - 0(Both) 2. Best Gaze (Lateral Gaze Paresis) - 0(Normal) 3. Visual Field Loss - 0(No visual loss) 4. Facial Palsy - 0(Normal) 5a. Left Arm: Motor (10-second hold) - 0(No drift) 5b. Right Arm: Motor (10-second hold) - 0(No drift) 6a. Left Leg: Motor (5-second hold - always test supine) - 0(No drift) 6b. Right Leg: Motor (5-second hold - always test supine) - 0(No drift) 7. Limb Ataxia (finger/nose \T\ heel/puckett - test with eyes open) - 0(Absent) 8. Sensory Loss (pinprick arms/legs/face) - 0(Normal) 9. Best Language: Aphasia (description/naming/reading) - 1(Mild to moderate aphasia) Initials: cm10 NIH Stroke Scale - NIH Stroke Score Date: 09/27/2024 Time: 17:38 Total Score = 0 10. Dysarthria (speech clarity - read or repeat words) - 0(Normal) 11. Extinction and Inattention (visual/tactile/auditory/spatial/personal) - 0(No abnormality) 1a. Level of Consciousness (LOC) - 0(Alert) 1b. Level of Consciousness (LOC) (Month \T\ Age) - 0(Both) 1c. LOC Commands (Open \T\ Closes Eyes/Solid State Tester) - 0(Both) 2. Best Gaze (Lateral Gaze Paresis) - 0(Normal) 3. Visual Field Loss - 0(No visual loss) 4. Facial Palsy - 0(Normal) 5a. Left Arm: Motor (10-second hold) - 0(No drift) 5b. Right Arm: Motor (10-second hold) - 0(No drift) 6a. Left Leg: Motor (5-second hold - always test supine) - 0(No drift) 6b. Right Leg: Motor (5-second hold - always test supine) - 0(No drift) 7. Limb Ataxia (finger/nose \T\ heel/puckett - test with eyes open) - 0(Absent) 8. Sensory Loss (pinprick arms/legs/face) - 0(Normal) 9. Best Language: Aphasia (description/naming/reading) - 0(No aphasia) Initials: cm10 Signatures: Dispatcher [employer] EDMS Cindi Quiñones, PATIENT TRANSPORT ORDERLY-C PATIENT TRANSPORT ORDERLY-Ckb Krista Fu Corey, MD MD cha Benton, Danielle, RN RN db Martinez, Clarissa, RN RN cm10 Nicki Rowe RN RN al5 Corrections: (The following items were deleted from the chart) 17:05 17:05 BASIC METABOLIC PANEL+C.LAB.BRZ ordered. EDMS EDMS 17:05 17:05 CBC+H.LAB.BRZ ordered. EDMS EDMS 17:05 17:05 HEPATIC FUNCTION+C.LAB.BRZ ordered. EDMS EDMS 17:05 17:05 MAGNESIUM+C.LAB.BRZ ordered. EDMS EDMS 17:05 17:05 PROBNP+C.LAB.BRZ ordered. EDMS EDMS 17:05 17:05 PROTIME (+INR)+COAG.LAB.BRZ ordered. EDMS EDMS 17:05 17:05 Troponin High Sensitivity+C.LAB.BRZ ordered. EDMS EDMS 17:05 17:05 UA Rfx Waqar Cult if indicated+U.LAB.BRZ ordered. EDMS EDMS 17:05 17:05 LIPASE+C.LAB.BRZ ordered. EDMS EDMS 17:05 17:05 LIPID PROFILE+C.LAB.BRZ ordered. EDMS EDMS 18:02 18:02 Brain Wo Cont+MRI.RAD.BRZ ordered. EDMS EDMS 18:11 17:57 emily bd 18:16 18:11 402 bd bd
[2024-09-27 18:00] LABS: ALT/SGPT 44 U/L (13-56); Albumin 3.8 g/dL (3.4-5.0); Albumin/Globulin Ratio 1.1 (1.1-1.8); Alkaline Phosphatase 80 U/L (45-117); Anion Gap 13.8 mEq/L (5.0-15.0); BUN Blood Urea Nitrogen 17 mg/dL (7-18); Globulin 3.4 g/dL (2.3-3.5); Glucose Level 111 mg/dL (74-106); HDL Cholesterol 71 mg/dL (40-60); LDL Cholesterol, Calculated 24 mg/dL (<130); LDL Cholesterol,Calc NonReport 24; Lipase 71 U/L (13-75); NT PRO-BNP 50 pg/mL (<125); Troponin High Sensitivity 4.1 pg/mL (<58.9)
[2024-09-27] MEDS ORDERED: CLOPIDOGREL 75 MG TABLET ONE (18:00)
[2024-09-27] MEDS ORDERED: ASPIRIN 81 MG CHEWABLE TABLET ONE (18:00)
[2024-09-27] MEDS ORDERED: ATORVASTATIN 20 MG TAB ONE (18:00)
[2024-09-27 18:02] LABS: AST/SGOT 26 U/L (15-37); Bilirubin Indirect, Calculated 0.3 mg/dL (0.2-0.8); Magnesium 2.0 mg/dL (1.6-2.4); Potassium 3.8 mEq/L (3.5-5.1)
--- NOTE | 2024-09-27 18:20 | RAD REPORT ---
EXAMINATION: CTA HEAD CLINICAL INDICATION: Female, 69 years old. STROKE ALERT TECHNIQUE: Axial CT images were obtained through the head after intravenous contrast utilizing angiog raphic protocol with 3D post-processing (maximum intensity projection images, volume rendered images and/or shaded surface rendered images). One or more of the following dose reduction technique s were used: Automated exposure control, adjustment of the mA and/or kV according to patient size, and/or iterative reconstruction. Unless otherwise specified, incidental findings do not require dedic ated imaging follow-up. COMPARISON: No prior exam. FINDINGS: Venous contamination due to somewhat suboptimal contrast timing limits evaluation. ICA: The petrous, cavernous, and supraclinoid segments of the bilateral internal carotid arteries are normal. DK: Anterior cerebral arteries are normal bilaterally. The anterior communicating artery is patent. MCA: Middle cerebral arteries are normal bilaterally. REHAB THERAPY MANAGER: Posterior cerebral arteries are patent bilaterally with somewhat diminutive caliber of the right P1 segment. Vertebrobasilar: The vertebral arteries are patent. The basilar artery is normal in appearance. 3D images confirm these findings. IMPRESSION: No evidence of large vessel occlusion or hemodynamically significant stenosis. Mildly diminutive caliber of the right P1 segment, could be developmental or related to segmental ath erosclerotic narrowing.
--- NOTE | 2024-09-27 18:23 | RAD REPORT ---
EXAMINATION: CT Neck Angio CLINICAL INDICATION: Female, 69 years old. [facility] MAIN PAIN Bed Name: 18 TECHNIQUE: Axial CT images were obtained from the aortic arch to the skull base after intravenous con trast utilizing angiographic protocol. Multiplanar reformats, as well as 3D post-processing (maximum intensity projection images, volume rendered images and/or shaded surface rendered images) w ere generated and reviewed. One or more of the following dose reduction techniques were used: Automated exposure control, adjustment of the mA and/or kV according to patient size, and/or iterativ e reconstruction. Unless otherwise specified, incidental findings do not require dedicated imaging follow-up. COMPARISON: No prior exam. FINDINGS: AORTA: The imaged aortic arch is normal. Normal three-vessel configuration of the arch. CCA: No artifact The common carotid arteries are patent and normal in caliber. ICA/ECA: Moderate atherosclerotic calcific plaque at the left ICA origin and mild plaque in the right ICA origin. Narrowing of the left proximal ICA with narrowest luminal diameter measuring 2 mm compared to 4.5 mm more distal, amounting to 56% stenosis. No significant stenosis on the right. VERTEBRAL: The cervical vertebral arteries are patent to the skull base. Right vertebral artery is do minant. SOFT TISSUE: No significant neck soft tissue abnormalities. The visualized lung apices are clear. 3D images confirm these findings. IMPRESSION: Up to moderate atherosclerotic carotid bulb calcifications more pronounced on the left, with resultin g 56% stenosis of the left ICA origin. No other significant flow abnormality of the neck vessels is identified. NASCET criteria used to quantify ICA stenosis, with the following grading scheme: Mild 0-49% stenosis Moderate 50-69% stenosis Severe 70-99% stenosis Reference: [place] Symptomatic Carotid Endarterectomy Trial Collaborators; Patsy HARDY, [place] BARRIENTOS, Steve RB, et al. Beneficial effect of carotid endarterectomy in symptomatic patients with high-grade carotid stenosis. N Engl J Med. 1990 15;325(7):445-53.
[2024-09-27 18:53] LABS: Urine Microscopic Reflex YN NO UMIC
[2024-09-27 18:54] LABS: Urine Culture Reflex Order NOT NEEDED
[2024-09-27] MEDS: FOLIC ACID 1 MG, MULTIVITAMINS INJ 10 ML, THIAMINE HCL 100 MG in NA CHLORIDE 0.9% 1,000 ML IV ONE (19:00)
--- NOTE | 2024-09-27 19:20 | RAD REPORT ---
EXAMINATION: ONE VIEW CHEST XR CLINICAL INDICATION: Female, 69 years old.,COUGH TECHNIQUE: Frontal chest projection is submitted. Examination is limited by patient positioning and t echnique. COMPARISON: 01/21/2021. FINDINGS: The lungs are well inflated and clear apart from mild right basilar atelectasis. No pneumothorax or sizable effusion. The heart is normal in size. Mediastinal contours are unremarkable. IMPRESSION: No acute intrathoracic abnormalities.
[2024-09-27] MEDS ORDERED: THIAMINE 200 MG/2 ML INJ ONE (19:48)
[2024-09-27] MEDS ORDERED: MULTIVITAMINS 10 ML VIAL (INJ) IV ONE (19:48)
[2024-09-27] MEDS ORDERED: ENOXAPARIN 40 MG/0.4 ML SQ ONE (20:28)
[2024-09-27 20:52] VITALS: BMI 31.8
[2024-09-27] MEDS ORDERED: ATORVASTATIN 20 MG TAB PO SCH (21:00)
--- NOTE | 2024-09-27 21:57 | RAD REPORT ---
EXAMINATION: MRI BRAIN WITHOUT CONTRAST CLINICAL INDICATION: Female, 69 years old.[facility] MAIN N STROKE ALERT Bed Name: 18 TECHNIQUE: Multiplanar multisequence MR images of the brain were obtained without intravenous contras t. Unless otherwise specified, incidental findings do not require dedicated imaging follow-up. COMPARISON: Stroke protocol CT and CT angiogram of earlier the same day FINDINGS: INTRACRANIAL: Midline structures are unremarkable. Diffusion-weighted images show no acute or early subacute infarction. There is mild brain atrophy with mildT2/FLAIR hyperintensities in the periventricular and deep white matter regions, likely representing chronic microvascular ischemic emily nges. There is no mass effect or midline shift. No abnormal extraaxial fluid collection. VASCULATURE: Normal signal voids in the larger intracranial arteries and dural venous sinuses. SINUSES: The paranasal sinuses and mastoid air cells are predominantly clear. BONE: The marrow signal pattern is within normal limits. IMPRESSION: No significant intracranial abnormalities.
[2024-09-27] MEDS: NA CHLORIDE 0.9% 1,000 ML IV SCH (22:16)
[2024-09-27] MEDS: ACETAMINOPHEN 325 MG TABLET PO PRN (23:24)
[2024-09-27] MEDS: FAMOTIDINE 20 MG/2 ML VIAL IV SCH (23:24)
--- NOTE | 2024-09-27 23:31 | RAD REPORT ---
EXAM: US Carotid Artery Bilateral CLINICAL INDICATION: cva TECHNIQUE: Real-time grayscale, color flow, and spectral Doppler sonographic images were obtained of the extracranial carotid system using a linear transducer. Arterial peak systolic velocities are recorded as follows. COMPARISON: No prior exam. FINDINGS: RIGHT: Common carotid artery: 104 cm/s Internal carotid artery: 112 cm/s Right ICA/CCA ratio: 1.1 Plaque: Mild small non-calcified plaque External carotid artery: 91 cm/s Vertebral artery: Antegrade LEFT: Common carotid artery: 92 cm/s Internal carotid artery: 104 cm/s Left ICA/CCA ratio: 1.1 Plaque:Moderate smooth calcified plaque External carotid artery: 97 cm/s Vertebral artery: Antegrade IMPRESSION: No hemodynamically significant stenosis (greater than 50%) within the extracranial internal carotid a rteries. The degrees of stenosis, if any, are quantified according to the consensus statement of the Society o f Radiologists in Ultrasound (SRUS). Please refer to Charles E, Bob C, Pedrito G et al. Carotid Artery Stenosis: Ornelas-Scale and Doppler US Diagnosis--Society of Radiologists in Ultrasound Consensus Conference. Radiology. 2003;229(2):340-6. doi:10.1148/[id number]
[2024-09-28 03:43] VITALS: O2SAT 98
[2024-09-28] MEDS: ASPIRIN EC 81 MG TAB PO SCH (08:12)
[2024-09-28] MEDS: CLOPIDOGREL 75 MG TABLET PO SCH (08:12)
[2024-09-28 09:00] LABS: HDL Cholesterol 59.0 mg/dL (40-60); LDL Cholesterol, Calculated 18.0 mg/dL (<130); LDL Cholesterol,Calc NonReport 18.0
[2024-09-28] MEDS ORDERED: FOLIC ACID 1 MG in NA CHLORIDE 0.9% 50 ML IV SCH (09:00)
[2024-09-28 09:30] VITALS: BP 139/67; TEMP 97.9
--- NOTE | 2024-09-28 09:46 | PN ---
This is a code 44 note. The patient was admitted with symptoms of stroke. Workup was negative. The patient's symptoms improved back to baseline. Therefore, the patient was being discharged with cont inued followup and workup as an outpatient. I spoke with Dr. Alvarez and I agree with the code 44. /JEAN-PAUL Voice ID: [id number] Report ID: [id number]
--- NOTE | 2024-09-29 04:46 | HP ---
Date of Admission: 09/28/2024 Chief Complaint: Trouble speaking. History Of Present Illness: This is a 69-year-old very pleasant female patient, who started to have some trouble yesterday afternoon with her speech and this started actually when she was out of her ho use, so after she noticed this problem, she actually went to her daughter's house and her daughter wa s with her who is a registered nurse and she noticed the patient having this trouble and she contacte d me immediately and she was advised to bring the patient to the emergency room. The patient denies any headache, chest pain, shortness of breath, palpitation. No nausea, vomiting. No fever, diarrhea . No tingling, numbness of hands or legs. No weakness of hands or legs. After the patient was eval uated in emergency room, she was admitted to hospital with TIA problem. Her symptoms resolved after she came to emergency room. Overnight, her condition has remained stable. This morning when I saw h er, her speech was normal and she had no neurological complaints or any complaints this morning. Allergies: NO KNOWN ALLERGIES. Medications: Albuterol inhaler 2 puffs 4 times a day as needed, aspirin 81 mg daily, atorvastatin 80 mg daily, Jardiance 25 mg daily, fluticasone nasal spray 1 spray each nostril 2 times a day, Advair 1 puff by mouth 2 times a day, sertraline 100 mg takes 2 tablets by mouth daily, Mounjaro 10 mg subcu taneous injection once a week, metformin 1000 mg 2 times a day. Review of Systems: PEDIATRIC PATHOLOGIST: As mentioned above. All other systems reviewed and negative. Past Medical History: Significant for allergic rhinitis, type 2 diabetes mellitus, mild persistent a sthma, obstructive sleep apnea, hypertension, hyperlipidemia, colon cancer, depression, insomnia. Past Surgical History: , hysterectomy, right radius and ulna fracture surgery, and has a ham[place] rdware in place. Family History: Father , had hypertension. Mother , had dementia. Sister had breast cancer and asthma. Social History: Negative for smoking. Use of alcohol, occasional. Physical Examination: Vital Signs: This morning, temperature 98.1, pulse 91, respiratory rate 16, blood pressure 110/70, o xygen saturation 97% on room air. Height 5 feet 2 inches, weight 182 pounds. General: Awake, alert, oriented, not in distress. HEENT: Head atraumatic, normocephalic. Conjunctivae nonerythematous. Sclerae white. Mouth, no thr ush or edema noted. Ears/Nose, no mass, lesion, discharge noted. Neck: Supple. No JVD, lymph nodes, bruit, thyromegaly noted. Lungs: Bilateral good equal air entry. Clear to auscultation. No rhonchi. No rales. Heart: Normal heart sounds, no murmur or gallop. Abdomen: Soft, bowel sounds normal. No guarding, rigidity, tenderness, mass, hepatosplenomegaly, dis tention, or bruit noted. Extremities: No leg edema. No calf tenderness. Skin: No rash, ulcer, cellulitis. Lymphatics: No lymph node enlargement in neck, supraclavicular, infraclavicular region. Neuro: No focal neurological deficit. Chest: Unremarkable. External Genitalia: Deferred. Rectal: Deferred. Laboratory Data: WBC 7.8, hemoglobin 15.2, platelets 247. Sodium 140, potassium 3.8, chloride 107, bicarb 23, BUN 17, creatinine 0.99, glucose 111. Liver function tests unremarkable. Troponin first set 4.1, second set 5.8. Triglyceride 121, total cholesterol 119, LDL 24, HDL 71, lipase 71. Urinal ysis negative. Chest x-ray, no acute intrathoracic changes. CAT scan of the head was negative for a ny acute intracranial changes. CT angiogram of head and neck was unremarkable except about 56% steno sis of left internal carotid artery. MRI of brain was negative for any acute intracranial changes an d carotid Doppler was negative for any significant stenotic lesion. Hospital Course: After the patient was evaluated in emergency room yesterday, she was admitted to [facility] with TIA. Overnight, her condition remained stable. Her EKG had shown normal sinus rhythm. There was no evidence of any atrial fibrillation. She did not have any focal neurological findings t his morning, so after I saw her, the patient's daughter came and details were discussed with both of them. My recommendation was for the patient to go home with changes in the medication as mentioned i n discharge orders and Neurology followup on outpatient basis. Yesterday, when she came to emergency room, she received aspirin 325 mg, Plavix 75 mg, and folic acid. Starting today, she will continue aspirin 81 mg daily which she normally takes at home. Along with that, she will also take Plavix 75 mg daily and folic acid 1 mg daily to help reduce future risk of TIA or stroke type of event. Discharge Medications And Instructions: 1. . 2. . Discharge Diagnoses: 1. TIA. 2. Hypertension. 3. Hyperlipidemia. 4. Type 2 diabetes mellitus. 5. Colon cancer. 6. Depression. 7. Insomnia. 8. Allergic rhinitis. 9. Mild persistent asthma. 10. Obstructive sleep apnea. Total time spent minutes including communication with the patient's daughter prior to hosp ital admission, communication with emergency room physician, review of emergency room visit record, a nd performing today's evaluation and management. DK/JEAN-PAUL Voice ID: [id number]
== END 2024-09-28 08:32 | disposition home or self-care (01) ==
LOC: ER 16:54 → INTOOBSV 18:01 → ERHOLD 18:01 → 2ND 20:32
PROVIDERS: ADMIT Internal Medicine; ATTEND Internal Medicine
DX: G45.9 Transient cerebral ischemic attack, unspecified (principal); R47.81 Slurred speech; R13.10 Dysphagia, unspecified; E11.9 Type 2 diabetes mellitus without complications; E78.5 Hyperlipidemia, unspecified; I10 Essential (primary) hypertension; F32.A Depression, unspecified; G47.00 Insomnia, unspecified; J30.9 Allergic rhinitis, unspecified; J45.30 Mild persistent asthma, uncomplicated; Z85.038 Personal history of other malignant neoplasm of large intestine
CPT/HCPCS: 96365; 93005; 85025; 80048; 36415; 83735; 82550; 85610; 80061 ×2; 82565; 82947 ×3; 85379; 80076; 81003; 84484 ×2; 83690; 83880; 70496; 70498; 70450; 71045; 93880; 70551; 96375; 96372; 99285; 96366; Q9967; J3411; J1650; J7030 ×3; G0378; J3101